=== PATIENT | female | born 1970 ===

== ENCOUNTER 2016-06-23 17:08 | Emergency (ER) | payer OTHER, BC ==
[2016-06-23 18:26] VITALS: BP 153/98; PULSE 98; RESP 19; TEMP 98.4; O2SAT 99
[2016-06-23] MEDS ORDERED: TDAP Vaccine 0.5 mL Syr IM ONE (19:54)
--- NOTE | 2016-06-23 20:10 | ED PDOC ---
HPI: Trauma/Fall - HPI Time Seen by Provider: 06/23/16 19:46 Chief Complaint (Nursing): Trauma Chief Complaint (Provider): Trauma History Per: Patient History/Exam Limitations: no limitations Injury Occurred (Timing): Just Before Arrival Location Of Injury: Left: Ankle, Elbow, Foot Severity: Mild Additional Complaint(s): Patient is a 46 year old female who presents to ED for left elbow, ankle and foot pain s/p injury just prior to arrival. 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 Denies head injury, neck pain, back pain or nausea. Past Medical History Reviewed: Historical Data, Nursing Documentation, Vital Signs Vital Signs: Last Vital Signs Temp 98.4 F 06/23/16 18:22 Pulse 98 H 06/23/16 18:22 Resp 19 06/23/16 18:22 BP 153/98 H 06/23/16 18:22 Pulse Ox 99 06/23/16 18:22 - Medical History PMH: No Chronic Diseases - Surgical History Surgical History: No Surg Hx - Family History Family History: States: No Known Family Hx - Living Arrangements Living Arrangements: With Family - Allergies Allergies/Adverse Reactions: Allergies Allergy/AdvReac Type Severity Reaction Status Date / Time No Known Allergies Allergy Verified 06/23/16 18:26 Review of Systems Cardiovascular: Negative for: Chest Pain Gastrointestinal: Negative for: Nausea Musculoskeletal: Positive for: Arm Pain, Leg Pain, Foot Pain. Negative for: Neck Pain, Back Pain Neurological: Negative for: Weakness, Numbness, Headache, Dizziness Physical Exam - Reviewed Nursing Documentation Reviewed: Yes Vital Signs Reviewed: Yes - Physical Exam Appears: Positive for: Non-toxic, No Acute Distress Head Exam: Positive for: ATRAUMATIC Skin: Positive for: Normal Color, Warm Eye Exam: Positive for: Normal appearance Neck: Positive for: Normal, Painless ROM, Supple Pulses-Dorsalis Pedis (L): 2+ Pulses-Radial (L): 2+ Back: Positive for: Normal Inspection. Negative for: Vertebral Tenderness Extremity: Positive for: Normal ROM, Tenderness (Left lateral malleolous and left lateral foot (-) swelling (-) deformity ), Other ((+) superficial abrasion with tenderness to left elbow (-) deformity. Full ROM ) Neurologic/Psych: Positive for: Alert, Oriented. Negative for: Motor/Sensory Deficits - ECG O2 Sat by Pulse Oximetry: 99 (RA) Pulse Ox Interpretation: Normal - Radiology X-Ray: Interpreted by Me (L elbow, ankle, foot x-ray) X-Ray Interpretation: No Acute Disease - Progress ED Course And Treament: Foot immobilized in ankle stirrup splint. Crutches provided. Medical Decision Making Medical Decision Making: Time: 1951 Initial Impression: R/O fracture Initial Plan: -- TDAP -- Ankle, Elbow and Foot Xray Scribe Attestation: Documented by Chiqui Ruby, acting as a scribe for Brenton Wright PA-C. Provider Scribe Attestation: All medical record entries made by the Scribe were at my direction and personally dictated by me. I have reviewed the chart and agree that the record accurately reflects my personal performance of the history, physical exam, medical decision making, and the department course for this patient. I have also personally directed, reviewed, and agree with the discharge instructions and disposition. Disposition - Clinical Impression Clinical Impression: Ankle sprain, Elbow sprain - Patient ED Disposition Is Patient to be Admitted: No - Disposition Referrals: Lisa Philippe MD [Staff Provider] - Disposition: Routine/Home Disposition Time: 20:42 Condition: STABLE Instructions: Ankle Sprain (ED), Elbow Sprain (ED), Crutch Instructions (ED) Forms: [facility] ED School/Work Excuse Print Language: SAMI
--- NOTE | 2016-06-24 11:56 | RAD ---
PROCEDURE: Left Ankle Radiographs. HISTORY: trauma COMPARISON: None FINDINGS: BONES: Normal. No fracture. JOINTS: Normal. No osteoarthritis. Ankle mortise maintained. Talar dome intact SOFT TISSUES: Normal. OTHER FINDINGS: None. IMPRESSION: Normal left ankle radiographs.
--- NOTE | 2016-06-24 11:57 | RAD ---
PROCEDURE: Radiographs of the left elbow. HISTORY: trauma COMPARISON: No prior. FINDINGS: BONES: Normal. No fracture. JOINTS: Normal. No osteoarthritis. SOFT TISSUES: Normal. JOINT EFFUSION: None. OTHER FINDINGS: None IMPRESSION: Unremarkable radiographs of the left elbow.
--- NOTE | 2016-06-24 12:04 | RAD ---
PROCEDURE: Left Foot Radiographs. HISTORY: trauma COMPARISON: None. FINDINGS: BONES: No fracture. Very small plantar calcaneal spur noted. JOINTS: Normal. SOFT TISSUES: Normal. OTHER FINDINGS: None. IMPRESSION: Very small plantar calcaneal spur. Otherwise unremarkable examination.
== END 2016-06-23 21:24 | disposition home or self-care (01) ==
LOC: H.ER 17:08
DX: S53.409A Unspecified sprain of unspecified elbow, initial encounter (principal); S93.402A Sprain of unspecified ligament of left ankle, initial encounter; W19.XXXA Unspecified fall, initial encounter; Y99.0 Civilian activity done for income or pay